=== PATIENT | female | born 1985 | race Caucasian/White ===

== ENCOUNTER 2021-04-07 10:26 | Emergency (ER) | payer MEDICAID ==
[~2021-04-07] VITALS: Ht 162.6 cm; Wt 64.0 kg
[2021-04-07 10:33] VITALS: BP 123/73
[2021-04-07] MEDS ORDERED: MAGNESIUM/ALUMINUM HYDROXIDE/SIMETHICONE 30ML UDC PO STA (11:58)
[2021-04-07] MEDS ORDERED: SODIUM CHLORIDE 0.9% 1,000 ML IV ONE (12:00)
[2021-04-07 12:28] LABS: BASOPHILS % 0.4 % (0.0-2.0); EOSINOPHILS % 0.3 % (0.0-5.0); HEMATOCRIT. 38.8 % (36.0-48.0); HEMOGLOBIN. 12.9 g/dL (12.0-16.0); LYMPHOCYTES % 38.9 % (20.0-50.0); MEAN CORPUSCULAR HEMOGLOBIN 29.2 pg (28.0-32.0); MEAN CORPUSCULAR VOLUME 87.7 fL (81.0-99.0); MONOCYTES % 6.9 % (2.0-8.0); NEUTROPHILS % 53.5 % (40.0-76.0); PLATELET 274 x1000/uL (130-400); RED BLOOD CELL COUNT 4.42 mill/uL (4.2-5.4); RED CELL DISTRIBUTION WIDTH 13.4 % (11.6-14.6)
[2021-04-07 12:33] LABS: CHLORIDE 108 mEq/L (98-107)
== END 2021-04-07 14:21 | disposition home or self-care (01) ==
LOC: ER 10:26
DX: R10.9 Unspecified abdominal pain (principal)
CPT/HCPCS: 36415; 71045; 80053; 84484; 85025; 93005; 96360; 99285; J7030